=== PATIENT | male | born 1955 | race Caucasian/White ===

== ENCOUNTER 2022-03-17 08:37 | Day surgery (SDC) | payer MEDICARE, BC ==
[2022-03-10 15:50] LABS: BASOPHILS # (AUTO) 0.1 X10'3 (0-0.2); BASOPHILS % (AUTO) 0.9 % (0-1); EOSINOPHILS # (AUTO) 0.2 X10'3 (0-0.9); EOSINOPHILS % (AUTO) 2.7 % (0-6); LYMPHOCYTES # (AUTO) 2.3 X10'3 (1.1-4.8); LYMPHOCYTES % (AUTO) 28.8 % (21-51); MEAN CORPUSCULAR HEMOGLOBIN 29.8 PG (27.0-31.0); MEAN CORPUSCULAR HGB CONC 34.2 g/dL (33.0-36.5); MEAN CORPUSCULAR VOLUME 87.2 FL (78-98); MEAN PLATELET VOLUME 7.9 FL (7.4-10.4); MONOCYTES # (AUTO) 0.8 X10'3 (0-0.9); NEUTROPHILS # (AUTO) 4.6 X10'3 (1.8-7.7); NEUTROPHILS % (AUTO) 57.6 % (42-75); PRE OP HEMATOCRIT 41.3 % (42.0-52.0); PRE OP HEMOGLOBIN 14.1 g/dL (14.0-17.9); PRE OP PLATELET COUNT 197 X10'3 (140-440); RED BLOOD COUNT 4.74 X10'6 (4.70-6.10); RED CELL DISTRIBUTION WIDTH 12.4 % (11.5-14.5)
[2022-03-10 16:11] LABS: ALBUMIN 3.6 G/DL (3.4-5.0); ALKALINE PHOSPHATASE 85 IU/L (46-116); BLOOD UREA NITROGEN 11 MG/DL (7-18); BUN/CREATININE RATIO 12.8 (5.4-32.0); CALCIUM 8.9 MG/DL (8.5-10.1); CHLORIDE 106 MMOL/L (99-107); CREATININE 0.86 MG/DL (0.60-1.10); PRE OP ALT 20 U/L (30-65); PRE OP ANION GAP 7 (8-16); PRE OP AST 27 U/L (10-37); PRE OP BILIRUB, TOTAL 0.5 MG/DL (0.0-1.0); PRE OP GLUCOSE 97 MG/DL (70-104); PRE OP POTASSIUM 4.1 MMOL/L (3.4-5.1); PRE OP SODIUM 143 MMOL/L (135-145); TOTAL CARBON DIOXIDE 29.9 MMOL/L (24-32); TOTAL PROTEIN 7.1 G/DL (6.4-8.2); eGFR 88 ML/MIN
[2022-03-17] VITALS (8 sets, daily range): BP systolic 102–124; BP diastolic 60–81
[~2022-03-17] VITALS: Ht 172.7 cm; Wt 78.1 kg
[~2022-03-17 08:37] MED LIST: NO HOME MEDS; clindamycin-Cleocin 900mg/D5W 50 ML IV ONE; famotidine 20mg tablet PO ONE; ringers solution, lacted 1,000 ML IV SCH
[2022-03-17] MEDS ORDERED: fentaNYL/PF 50MCG/1 ML 2ML syringe IV PRN ×2 (08:45)
[2022-03-17] MEDS ORDERED: ringers solution, lacted 1,000 ML IV SCH (08:45)
[2022-03-17] MEDS ORDERED: hydrALAZINE 20mg/ml inj. IV PRN (08:45)
[2022-03-17] MEDS ORDERED: morphine 2 MG/ML inj. syringe IV PRN (08:45)
[2022-03-17] MEDS ORDERED: labetalol 20mg/4ml (5mg/ml) syringe IV PRN (08:45)
[2022-03-17] MEDS ORDERED: morphine 4 MG/ML inj SYRINge IV PRN (08:45)
[2022-03-17] MEDS ORDERED: ondansetron/PF 4mg/2ml inj IV PRN (08:45)
[2022-03-17] MEDS ORDERED: BUPIVAcaine/PF 2.5 mg/ml (0.25%) 30ml vial ONE (13:29)
[2022-03-17] MEDS ORDERED: lidocaine 1%/epinephrine 1:100,000 inj. 50ml multi-dose vial ONE (13:29)
[2022-03-17] MEDS ORDERED: tobramycin 40mg/ml inj ONE (13:29)
[2022-03-17] MEDS ORDERED: dexamethasone sod phosphate 10mg/ml inj ONE (13:57)
[2022-03-17] MEDS ORDERED: sevoflurane 250ml liquid IH ONE (13:57)
[2022-03-17] MEDS ORDERED: fentaNYL/PF 50MCG/1 ML 2ML syringe ONE ×2 (14:04)
[2022-03-17] MEDS ORDERED: midazolam 1 mg/ML 2ml injection ONE (14:04)
[2022-03-17] MEDS ORDERED: ondansetron/PF 4mg/2ml inj ONE (14:21)
[2022-03-17] MEDS ORDERED: ePHEDrine 50MG/ML INJ. ONE (14:21)
[2022-03-17] MEDS ORDERED: rocuronium 10mg/ml inj IV ONE ×2 (14:21→15:32)
[2022-03-17] MEDS ORDERED: LIDOcaine 1%/PF 5ML 10 MG/ML VIAL ONE (14:22)
[2022-03-17] MEDS ORDERED: propofol inj 20 ML IV ONE (14:22)
[2022-03-17] MEDS ORDERED: neostigmine methylsulfate 1 MG/ML 10ml vial ONE (14:22)
[2022-03-17] MEDS ORDERED: glycopyrrolate 0.2mg/ml inj ONE (14:22)
--- NOTE | 2022-03-17 16:36 | NUR ---
Received from OR via [facility] IN STABLE CONDITION , accompanied by Anesthesiologist and CLINICAL TEAM MANAGER report given by CLINICAL TEAM MANAGER AND Anesthesiolgist. Addendum: 03/17/22 at 1647 by Citlali Coleman RN Amended: Links added.
[2022-03-17] MEDS ORDERED: HYDROcodone/acetaminophen 10/325mg tab PO ONE (17:45)
--- NOTE | 2022-03-17 18:16 | NUR ---
PATIENT DISCHARGED FROM PACU IN STABLE CONDITION AFTER WRITTEN AND VERBAL INSTRUCTIONS GIVEN TO PATIENT AND . PATIENT AND GAVE VERBAL UNDERSTANDING OF INSTRUCTIONS GIVEN. PATIENT LEFT FACILITY VIA WHEELCHAIR WITH RN. Addendum: 03/17/22 at 1937 by Citlali Coleman RN Amended: Links added.
== END 2022-03-17 18:16 | disposition home or self-care (01) ==
LOC: PAS 08:37
PROVIDERS: ATTEND Colon & Rectal Surgery
DX: K40.90 Unilateral inguinal hernia, without obstruction or gangrene, not specified as recurrent (principal); Z79.899 Other long term (current) drug therapy; Z98.890 Other specified postprocedural states; Z87.891 Personal history of nicotine dependence; Z88.0 Allergy status to penicillin
CPT/HCPCS: 36415; 49650; 80053; 82948; 85025; 87811; 93005; C1758; C1781; J1100; J2250; J2405; J2704; J2710; J3010; J3260; J3490; J7030; J7120; Z7506; Z7508; Z7512; A4215; A4618; A7000